=== PATIENT | male | born 1970 | race Caucasian/White ===

== ENCOUNTER 2019-10-23 08:05 | Day surgery (SDC) | payer BC ==
[2019-10-23] VITALS (12 sets, daily range): BP systolic 101–139; BP diastolic 67–86; PULSE 57–70; TEMP 98.3
[~2019-10-23] VITALS: Ht 160 cm; Wt 85.0 kg
[2019-10-23] MEDS ORDERED: ZOLOFT 100MG100 MG PO (08:44)
[2019-10-23] MEDS ORDERED: IMDUR 30MG30 MG/TAB PO (08:46)
[2019-10-23] MEDS ORDERED: PLAVIX 75MG TAB75 MG PO (08:46)
[2019-10-23] MEDS ORDERED: LOPRESSOR 225 MG/TAB PO (08:46)
[2019-10-23] MEDS ORDERED: LIPITOR 40MG TA40 MG PO (08:47)
[2019-10-23] MEDS ORDERED: ASPIRIN E.C. 8181 MG PO (08:48)
[2019-10-23 09:03] LABS: INR 0.9 (0.8-3.0); PROTHROMBIN TIME 10.9 SECONDS (9.7-12.8)
[2019-10-23 09:04] LABS: HEMATOCRIT 39.9 % (42.0-52.0); HEMOGLOBIN 13.8 g/dl (13.5-18.0); MEAN CELL VOLUME 85 fl (80.0-100.0); MEAN CORPUSCULAR HEMOGLOBIN 29 pg (27.0-31.0); MEAN CORPUSCULAR HGB CONC 35 g/dl (33.0-37.0); MEAN PLATELET VOLUME 11.1 fl (7.4-10.4); PLATELET COUNT 196 K/mm3 (130-400); RED BLOOD COUNT 4.72 M/mm3 (4.20-5.60); REDCELL DISTRIBUTION WIDTH-CV 12.7 % (11.5-14.5)
[2019-10-23 09:05] LABS: PARTIAL THROMBOPLASTIN TIME 32.3 SECONDS (26.0-37.0)
[2019-10-23 09:47] LABS: CALCIUM 9.1 mg/dL (8.4-10.2); CREATININE, serum 0.89 (0.66-1.25); POTASSIUM 4.7 mmol/L (3.4-5.0)
--- NOTE | 2019-10-23 11:53 | NUR ---
SEE MERGE FOR MEDICATION ADMINISTRATION TIMES AND INTRA AND POST SEDATION ASSESSMENTS.
[2019-10-23] MEDS ORDERED: OMEGA-3 1000 MG1 CAP PO (12:37)
[2019-10-23] MEDS ORDERED: LIPITOR 80MG80 MG PO (12:37)
--- NOTE | 2019-10-23 12:40 | NUR ---
Pt returned to [facility] 14 per bed s/p heart cath. Pt resting well, family at bedside.
--- NOTE | 2019-10-23 12:44 | NUR ---
bedside hand off report to liban griffith. TR band in place on r hand with 13ml of air in the band. pt is alert and oriented at this time. family at bedside. blood pressure within normal limits. .pt has no questions or concerns at this time.
--- NOTE | 2019-10-23 16:10 | NUR ---
R radial band removed from cath site. Site remains soft, C/D/I, covered with bandaid and gauze and wrapped with coban. Pt talia well. Pt has ambulated and talia PO intake s n/v.
--- NOTE | 2019-10-23 16:15 | NUR ---
PIV removed with catheter intact.
--- NOTE | 2019-10-23 16:25 | NUR ---
Pt discharged per w/c by nurse with .
== END 2019-10-23 16:40 | disposition home or self-care (01) ==
LOC: COL.CAR 08:05
PROVIDERS: Internal Medicine Cardiovascular Disease
DX: R94.39 Abnormal result of other cardiovascular function study (principal); I25.10 Atherosclerotic heart disease of native coronary artery without angina pectoris; I25.2 Old myocardial infarction; E11.9 Type 2 diabetes mellitus without complications; I10 Essential (primary) hypertension; Z79.82 Long term (current) use of aspirin; Z79.02 Long term (current) use of antithrombotics/antiplatelets; Z82.49 Family history of ischemic heart disease and other diseases of the circulatory system
CPT/HCPCS: J1644; J2250; J3010; Q9967